=== PATIENT | male | born 1980 | race Caucasian/White ===

== ENCOUNTER → 2016-12-21 | Outpatient (CLI) | payer OTHER, SELFPAY ==
--- NOTE | 2016-12-22 13:40 | RAD ---
History: Renal calculus. KUB: Single supine view is obtained. Bowel gas overlies the renal beds. No unusual calcific or soft tissue density. Bowel gas pattern is normal. No bony abnormality. IMPRESSION: Negative KUB. Electronically signed by: Whitney Mullins MD 12/22/2016 1:39 PM MAINTENANCE REPAIRER
--- NOTE | 2016-12-26 00:46 | RAD ---
History: Renal calculus. KUB: Single supine view is obtained. Bowel gas overlies the renal beds. No unusual calcific or soft tissue density. Bowel gas pattern is normal. No bony abnormality. IMPRESSION: Negative KUB. Electronically signed by: Whitney Mullins MD 12/22/2016 1:39 PM [employer]
== END | disposition home or self-care (01) ==
LOC: RAD 14:51
PROVIDERS: ATTEND Urology
DX: N20.0 Calculus of kidney (principal)

== ENCOUNTER 2017-02-15 13:16 | Day surgery (SDC) | payer OTHER ==
[~2017-02-15 13:16] MED LIST: DEXAMETHASONE INJ 10 MG/ML VIAL ONE; LIDOCAINE 1% 10 ML VIAL INJ ONE; METOCLOPRAMIDE HCL INJ 10 MG/2 ML VIAL ONE; PROPOFOL 200 MG/20 ML VIAL IV ONE; raNITIdine HCL INJ 25 MG/ML VIAL ONE
[2017-02-15] MEDS ORDERED: LACTATED RINGERS 1,000 ML ONE (13:17)
[2017-02-15] MEDS ORDERED: metroNIDAZOLE IV PREMIX 500MG 100 ML IVPB ONE (13:22)
[2017-02-15] MEDS ORDERED: METRONIDAZOLE 500 MG/100 ML IVPB ONE (14:40)
[2017-02-15] MEDS ORDERED: fentaNYL CITRATE INJ 50 MCG/ML AMP ONE (14:46)
[2017-02-15] MEDS ORDERED: MIDAZOLAM INJ 5 MG/5 ML VIAL ONE (14:46)
[2017-02-15] MEDS ORDERED: SUCCINYLCHOLINE CHLORIDE 200 MG/10 ML VIAL ONE (15:06)
[2017-02-15] MEDS ORDERED: ROCURONIUM BROMIDE 10 MG/ML VIAL ONE (15:06)
[2017-02-15] MEDS ORDERED: BUPIVACAINE 0.25% W/EPI 50 ML VIAL INJ ONE (15:27)
[2017-02-15] MEDS ORDERED: IODOFORM PACKING 1/2 INCH 1 EA BTTL TOP ONE (15:39)
--- NOTE | 2017-02-15 16:31 | OP ---
DATE OF PROCEDURE: 02/15/17 PREOPERATIVE DIAGNOSIS: 1. Left anterior perirectal abscess. POSTOPERATIVE DIAGNOSIS: 1. Left anterior perirectal abscess. SURGICAL PROCEDURE: 1. Incision and drainage of perirectal abscess. SURGEON: Avery Rodríguez M.D. AUTOMOBILE MECHANIC ASSISTANT: None. ANESTHESIA: General laryngeal mask and local infiltration of 0.25% Marcaine with epinephrine. INDICATION FOR SURGERY: The patient is a 36 year-old male who has previously had a perirectal abscess that was drained in the office. I has recurred. He presented with tenderness that he was unable to deal with, with no draining, no fever or chills. He was brought to the Surgical Suite this afternoon after an 8 hour period from his last meal. His urine is clear with a specific gravity only of 1.025. White count is 9.8 with 66% neutrophils. FINDINGS AT TIME OF PROCEDURE: The abscess cavity extended from approximately 3 inches anterior and to the left of the anus. It began to extend into the ischiorectal fossa but this was quite shallow. It was lateral to the sphincter muscles and there was no palpable mass or induration noted in the anus on rectal exam. DESCRIPTION OF PROCEDURE: After adequate general laryngeal mask anesthesia was obtained, the patient was placed in the dorsal lithotomy position. His scrotum was elevated. He was prepped and draped in the usual sterile manner. A surgical time out was taken. A rectal examination was performed with the previously noted findings. At this time, the skin overlying the fluctuant area was infiltrated with local anesthesia and a stab wound was made with a #15 blade anteriorly. Culture was taken and then using a hemostat in the open wound the skin was incised moving toward the rectum and then more anteriorly to unroof the whole abscess cavity. It was then irrigated copiously with saline. Hemostasis was obtained on the skin edges mainly with electrocautery. It was again irrigated with saline and then packed with 1/2 inch Iodoform nu gauze. A sterile dressing was applied. The patient tolerated the procedure well. Estimated blood loss was approximately 75 mL. All sponge, needle and instrument counts were correct. #[id number] [facility]
[2017-02-15] MEDS ORDERED: AMOXICILLIN & POT CLAVULANATE 875 MG TAB PO ONE (17:14)
[2017-02-15] MEDS ORDERED: HYDROcodone 7.5MG/APAP 325MG 1 EA TAB PO PRN (17:15)
[2017-02-15] MEDS ORDERED: ONDANSETRON INJ 4 MG/2 ML VIAL IV ONE (17:17)
[2017-02-15] MEDS ORDERED: MORPHINE SULFATE INJ 10 MG/ML VIAL IV PRN (17:18)
[2017-02-15] MEDS ORDERED: AMOXICILLIN & POT CLAVULANATE 875 MG TAB ONE (17:35)
[2017-02-15 18:06] VITALS: BP 120/75; TEMP 98.2; O2SAT 96
== END 2017-02-15 18:20 | disposition home or self-care (01) ==
LOC: AMB 13:16
PROVIDERS: ATTEND Surgery
DX: K61.1 Rectal abscess (principal); K21.9 Gastro-esophageal reflux disease without esophagitis; Z79.899 Other long term (current) drug therapy
CPT/HCPCS: 00902; 36415; 46040; 81001; 85025; 87070; 87077; 87186; J1100; J2250; J2765; J2780; J3010; J3490; J7120